=== PATIENT | female | born 1970 | race Two or more races ===

== ENCOUNTER → 2016-12-24 | Outpatient (CLI) | payer OTHER | LOC: CIMAGING 08:49 | PROVIDERS: ATTEND Family Medicine | DX: Z12.31 Encounter for screening mammogram for malignant neoplasm of breast (principal); Z80.3 Family history of malignant neoplasm of breast | CPT/HCPCS: G0202 ==

== ENCOUNTER → 2017-02-26 | Outpatient (CLI) | payer OTHER | LOC: CIMAGING 13:04 | PROVIDERS: ATTEND Family Medicine | DX: M19.072 Primary osteoarthritis, left ankle and foot (principal); M77.32 Calcaneal spur, left foot | CPT/HCPCS: 73630-PO ==

== ENCOUNTER → 2017-07-01 | Outpatient (CLI) | payer OTHER | LOC: BMCIMAGING 11:47 | PROVIDERS: ATTEND Orthopaedic Surgery Hand Surgery | DX: M50.321 Other cervical disc degeneration at C4-C5 level (principal) ==